=== PATIENT | male | born 1940 | race African-American/Black ===

== ENCOUNTER 2018-08-22 01:46 | Emergency (ER) | payer OTHER, MEDICARE ==
--- NOTE | 2018-08-22 02:14 | PDOC ---
Attending Attestation - Resident Resident Name: Sa Laineyira - ED Attending Attestation I have performed the following: I have examined & evaluated the patient, The case was reviewed & discussed with the resident, I agree w/resident's findings & plan - HPI HPI: 08/22/18 03:01 Pt comes with persistent cough and chills. He was treated with a z pierre and still feels ill. He was treated with cough medicine prior to thaat while he was in [place] visiting. - Physicial Exam PE: 08/22/18 04:33 Agree with resident exam. Abd soft NT ND. No flank pain. Lungs clear bilat on exam. HEENT normal (CXR shows a right sided pneumonia) - Medical Decision Making 08/22/18 03:56 PT HAS A RIGHT SIDED PNEUMONIA AND HE HAS CHILLS AND COUGH AND FEVER AT HOME. HE IS DAY 5 TODAY FOR ZITHROMAX; THUS PATIENT IS FAILING OUTPATIENT TREATMENT OF PNEUMONIA. WE WILL GET CULTURES AND BASIC LABS AND ADMIT HIM TO OBSERVATION. 08/22/18 04:23 Pt's UA is normal. He will be admitted for pneumonia. 08/22/18 04:33 CBC and chem are pending. 08/22/18 05:43 Pt's PMD wants him discharged home and he will follow with PMD.
[2018-08-22] MEDS ORDERED: ACETAMINOPHEN 500 MG TABLET (FP) PO ONE (02:19)
--- NOTE | 2018-08-22 02:25 | PDOC ---
History of Present Illness - General Chief Complaint: Cold Symptoms Stated Complaint: COUGH,SWEATING Time Seen by Provider: 08/22/18 01:52 History Source: Patient Exam Limitations: No Limitations - History of Present Illness Initial Comments: 08/22/18 02:22 Pt is a 78yo M with PMH of HTN presenting to ED with complaints of cough and fever. Pt states he was in [place] and developed fever and congestion while there. He went to a doctor and was given cough syrup and a "flu medication". He came back 4 days ago and saw his PMD on . He was given a Z-pack. Pt states that he is still coughing sometimes productive of yellow phlegm. Endorses subjective fevers and chills and slight neck pain. Denies chest pain, SOB, headache, congestion, throat pain, ear ache, abdominal pain, n/v/d, urinary symptoms. PMD: Vikas Dean PMH: see hpi Meds: Norvasc Social: denies Allergies: Sulfa Past History - Past Medical History Allergies/Adverse Reactions: Allergies Allergy/AdvReac Type Severity Reaction Status Date / Time Sulfa (Sulfonamide Allergy Verified 08/22/18 01:58 Antibiotics) Home Medications: Ambulatory Orders Amlodipine Besylate [Norvasc -] 10 mg PO DAILY 12/03/15 Guaifenesin AC [Robitussin AC] 10 ml PO Q6H #200 ml MDD 40 08/22/18 levoFLOXacin [Levaquin] 750 mg PO DAILY #5 tab 08/22/18 - Immunization History Immunization Up to Date: No - Suicide/Smoking/Psychosocial Hx Smoking History: Never smoked Have you smoked in the past 12 months: No Information on smoking cessation initiated: No Hx Alcohol Use: No Drug/Substance Use Hx: No Substance Use Type: None *Physical Exam - Vital Signs Last Vital Signs Temp Pulse Resp BP Pulse Ox 97.9 F 58 L 18 115/76 97 08/22/18 02:02 08/22/18 02:02 08/22/18 02:02 08/22/18 02:02 08/22/18 02:02 Moderate Sedation - Procedure Monitoring Vital Signs: Procedure Monitoring Vital Signs Temperature 97.9 F 08/22/18 02:02 Pulse Rate 58 L 08/22/18 02:02 Respiratory Rate 18 08/22/18 02:02 Blood Pressure 115/76 08/22/18 02:02 O2 Sat by Pulse Oximetry (%) 97 08/22/18 02:02 ED Treatment Course - LABORATORY CBC & Chemistry Diagram: 08/22/18 04:19 08/22/18 04:19 Medical Decision Making - Medical Decision Making 08/22/18 02:24 Pt is a 78yo M with PMH of HTN presenting to ED with complaints of cough and fever. Vitals: wnl PE: benign -CXR. Tylenol CXR shows consolidation in R lobe. Pt not responding to outpt therapy of zithromax. CBC, cmp, ekg, blood cultures ordered. possible admission. Spoke to Dr Dean, recommended that pt be given outpt trial of levaquin. REcommended 750mg levaquin x5 days, robitussin and follow up on Thursday. Does not think pt needs admission at this time. Labs significant for low Ca (7.9) Will give IV levaquin and dc with rx Pt agreed to plan. Afebrile, saturating well on RA, no white count. DC home with rx and thursday follow up 08/22/18 07:49 *DC/Admit/Observation/Transfer Diagnosis at time of Disposition: Cough Pneumonia Qualifiers: Pneumonia type: due to unspecified organism Laterality: right Lung location: middle lobe of lung Qualified Code(s): J18.1 - Lobar pneumonia, unspecified organism - Discharge Dispostion Disposition: HOME Condition at time of disposition: Good Decision to Admit order: No - Prescriptions Prescriptions: Guaifenesin AC [Robitussin AC] 10 ml PO Q6H #200 ml MDD 40 levoFLOXacin [Levaquin] 750 mg PO DAILY #5 tab - Referrals Referrals: Vikas Dean MD [Primary Care Provider] - - Patient Instructions Printed Discharge Instructions: DI for Pneumonia -- Adult Additional Instructions: You were seen here today for cough and fevers/chills. It looks like you have pneumonia. I spoke to your doctor and he recommends you take a new antibiotic called Levaquin. It was sent to your pharmacy. Please take as directed. Please make sure you see Dr. Dean in the office on Thursday. Come back to the emergency room if cough gets worse, you feel short of breath, you continue to have fevers/chills, you have chest pain or if any new concerning symptom develops. Thank you - Post Discharge Activity
[2018-08-22 02:46] VITALS: TEMP 97.9; BMI 26.9
[2018-08-22] MEDS ORDERED: ACETAMINOPHEN 325 MG TABLET (FP) ONE (02:48)
[2018-08-22 03:49] LABS: URINE APPEARANCE Clear; URINE BILIRUBIN Negative (<2.0 mg/dL); URINE COLOR Yellow; URINE GLUCOSE (UA) Negative (NEGATIVE); URINE KETONE Negative (NEGATIVE); URINE LEUK ESTERASE Negative (NEGATIVE); URINE NITRITE Negative (NEGATIVE); URINE PROTEIN Negative (NEGATIVE); URINE UROBILINOGEN 0.2 mg/dL (0.2-1.0)
[2018-08-22] MEDS ORDERED: PIPERACILLIN/TAZOB 3.375 GM 3.375 GM in DEXTROSE 5%-WATER - 50 ML IVPB ONE (03:58)
[2018-08-22] MEDS ORDERED: PIPERACILLIN/TAZOB 3.375 GM 3.375 GM/50 ML BAG IVPB ONE (04:00)
[2018-08-22 04:31] LABS: BASO % 0.8 % (0-2.0); EOS % 5.1 % (0-4.5); HEMATOCRIT 37.2 % (35.4-49); HEMOGLOBIN 13.2 GM/dL (11.7-16.9); LYMPH % 39.9 % (8-40); MCH 34.5 pg (25.7-33.7); MCHC 35.6 g/dl (32.0-35.9); MEAN CELL VOLUME 96.8 fl (80-96); MEAN PLT VOLUME 7.7 fl (7.5-11.1); MONO % 13.7 % (3.8-10.2); NEUT % 40.5 % (42.8-82.8); PLATELET COUNT 184 K/MM3 (134-434); RBC 3.84 M/mm3 (4.00-5.60); RDW 12.8 % (11.9-15.9); WHITE BLOOD COUNT 3.8 K/mm3 (4.0-10.0)
[2018-08-22 05:00] LABS: ALBUMIN 3.6 g/dl (3.4-5.0); ALK PHOS 88 U/L (45-117); ANION GAP 5 MMOL/L (8-16); BILIRUBIN,TOTAL 0.5 mg/dL (0.2-1); BLOOD UREA NITROGEN 14 mg/dL (7-18); CALCIUM 7.9 mg/dL (8.5-10.1); CHLORIDE 106 mmol/L (98-107); CO2 30 mmol/L (21-32); CREATININE 1.1 mg/dL (0.55-1.3); GLUCOSE,RANDOM 100 mg/dL (74-106); SGOT/AST 21 U/L (15-37); SGPT/ALT 27 U/L (13-61); SODIUM 140 mmol/L (136-145); TOT PROT 6.9 g/dl (6.4-8.2)
[2018-08-22 06:12] VITALS: BP 130/85; PULSE 65
--- NOTE | 2018-08-22 11:03 | EKG ---
Test Reason : Blood Pressure : / mmHG Vent. Rate : 051 BPM Atrial Rate : 051 BPM P-R Int : 242 ms QRS Dur : 172 ms QT Int : 482 ms P-R-T Axes : 013 -38 -29 degrees QTc Int : 444 ms SINUS BRADYCARDIA WITH 1ST DEGREE A-V BLOCK LEFT AXIS DEVIATION RIGHT BUNDLE BRANCH BLOCK MODERATE VOLTAGE CRITERIA FOR LVH, MAY BE NORMAL VARIANT INFERIOR INFARCT , AGE UNDETERMINED ANTERIOR INFARCT , AGE UNDETERMINED ABNORMAL ECG NO PREVIOUS ECGS AVAILABLE Confirmed by LEYDI DUDLEY MD ([id number]) on 08/22/2018 11:03:02 AM Referred By: Confirmed By:LEYDI DUDLEY MD
== END 2018-08-22 06:12 | disposition home or self-care (01) ==
LOC: JER 01:46
DX: J18.1 Lobar pneumonia, unspecified organism (principal)
CPT/HCPCS: 36415; 71046-TC-FY; 80053; 81003; 85025; 87040; 87086; 93005; 93010; 96365; 99282-25